=== PATIENT | male | born 1965 | race Caucasian/White ===

== ENCOUNTER 2019-01-18 22:39 | Emergency (ER) | payer OTHER ==
[~2019-01-18] VITALS: Ht 175.3 cm; Wt 80.5 kg
[2019-01-18 22:43] VITALS: TEMP 98
[2019-01-18] MEDS ORDERED: LIPITOR 40MG TA40 MG PO (22:53)
[2019-01-18] MEDS ORDERED: LOPRESSOR 225 MG/TAB PO (22:54)
[2019-01-18] MEDS ORDERED: ASPIRIN 81M81 MG/TA2 PO (22:54)
[2019-01-18 23:50] VITALS: BP 149/80; PULSE 46
== END 2019-01-18 23:51 | disposition home or self-care (01) ==
LOC: COL.ER 22:39
DX: H20.9 Unspecified iridocyclitis (principal); I25.10 Atherosclerotic heart disease of native coronary artery without angina pectoris; Z79.82 Long term (current) use of aspirin